=== PATIENT | female | born 1975 | race Caucasian/White ===

== ENCOUNTER 2016-10-27 18:59 | Emergency (ER) | payer SELFPAY ==
[2016-10-27 19:13] VITALS: BP 118/75
[2016-10-27] MEDS ORDERED: Sodium Chloride 0.9% 1,000 ML IV SCH (19:30)
[2016-10-27] MEDS ORDERED: Sodium Chloride 0.9% 10 ML Syringe FLUSH ONE (20:16)
[2016-10-27] MEDS ORDERED: Diatrizoate Meglumine/Diatrizoate Sodium 37% 120 ML Bottle PO ONE (20:16)
[2016-10-27] MEDS ORDERED: Iopamidol 612 MG/ML 100 ML Bottle IVPUSH ONE (20:16)
--- NOTE | 2016-10-27 20:16 | EDM.PDOC ---
ED HPI GENERAL MEDICAL PROBLEM - General Chief Complaint: Skin Complaint Stated Complaint: POSS CYST Time Seen by Provider: 10/27/16 19:18 Source of Information: Reports: Patient, RN Notes Reviewed, Other (Friend) History Limitations: Reports: No Limitations - History of Present Illness INITIAL COMMENTS - FREE TEXT/NARRATIVE: The patient states that she developed a painful lump to her right buttock about 2 weeks ago. A friend started to apply a salve about one week ago, and the wound began draining a yellowish purulent material around Thursday or Thursday, 10/21/2016 or 10/22/2016. Since then, the friend has been applying Neosporin ointment and covering the wound with a large Band-Aid. No recent fever. No prior similar symptoms. The patient is currently being court monitored for drug use. She has a history of methamphetamine abuse, including injection, although she states that she has never injected in her buttock. She does not recall any injury to the affected area. - Related Data Allergies Allergy/AdvReac Type Severity Reaction Status Date / Time codeine Allergy Nausea Verified 10/27/16 19:13 Home Meds: Home Meds . [No Known Home Meds] 10/27/16 [History] Past Medical History Psychiatric History: Reports: Addiction (Methamphetamine) - Past Surgical History HEENT Surgical History: Reports: Oral Surgery ([place] teeth extraction) GI Surgical History: Reports: Cholecystectomy Female Surgical History: Reports: Section (x 3) Social & Family History - Tobacco Use Smoking Status *Q: Current Every Day Smoker Years of Tobacco use: 27 Packs/Tins Daily: 1 - Caffeine Use Caffeine Use: Reports: None - Alcohol Use Alcohol Use History: No - Recreational Drug Use Recreational Drug Use: Yes Drug Use in Last 12 Months: Yes Recreational Drug Type: Reports: Methamphetamine Recreational Drug Last Use: around October 09, 2016 - Living Situation & Occupation Living situation: Reports: (), Other (with friends) Occupation: Unemployed ED ROS GENERAL - Review of Systems Review Of Systems: See Below Constitutional: Reports: No Symptoms HEENT: Reports: No Symptoms Respiratory: Reports: No Symptoms Cardiovascular: Reports: No Symptoms Endocrine: Reports: No Symptoms GI/Abdominal: Reports: No Symptoms : Reports: No Symptoms Musculoskeletal: Reports: No Symptoms Skin: Reports: No Symptoms Neurological: Reports: No Symptoms Psychiatric: Reports: No Symptoms Hematologic/Lymphatic: Reports: No Symptoms Immunologic: Reports: No Symptoms ED EXAM, SKIN/RASH Exam: See Below Exam Limited By: Other (The patient allowed me to look at the lesion, but did not allow me to palpate the area adequately - she moved away as soon as I began to palpate the area) General Appearance: Alert, WD/WN, No Apparent Distress Skin: Warm, Dry, Normal Color Location, Skin: Other (Medial right buttock: Approximately 2.5 cm diameter area of open wound with stringy yellow material emanating, consistent with an open abscess. Mild surrounding erythema and swelling. Unable to determine if the area is indurated or fluctuant, due to lack of cooperation by the patient.) Course - Vital Signs Last Recorded V/S: Last Vital Signs Temp 36.7 C 10/27/16 19:10 Pulse 98 10/27/16 19:10 Resp 16 10/27/16 19:10 BP 118/75 10/27/16 19:10 Pulse Ox 100 10/27/16 19:10 - Orders/Labs/Meds Orders: Active Orders 24 hr Category Date Time Status Pelvis w Cont [CT] Stat Exams 10/27/16 19:29 Taken Sodium Chloride 0.9% [Normal Saline] 1,000 ml Med 10/27/16 19:30 Active IV ASDIRECTED Medication Orders Sodium Chloride (Normal Saline) 1,000 mls @ 150 mls/hr IV ASDIRECTED [place] Last Admin: 10/27/16 19:42 Dose: 150 mls/hr Labs: Laboratory Tests 10/27/16 10/27/16 Range/Units 19:35 19:35 WBC 9.10 (3.98-10.04) K/mm3 RBC 4.61 (3.98-5.22) M/mm3 Hgb 14.2 (11.2-15.7) gm/L Hct 42.4 (34.1-44.9) % MCV 92.0 (79.4-94.8) fl MCH 30.8 (25.6-32.2) pg MCHC 33.5 (32.2-35.5) g/dl RDW Std Deviation 45.1 (36.4-46.3) fL Plt Count 338 (182-369) K/mm3 MPV 10.1 (9.4-12.3) fl Neutrophils % (Manual) 69 H (40-60) % Band Neutrophils % 0 (0-10) % Lymphocytes % (Manual) 27 (20-40) % Atypical Lymphs % 0 % Monocytes % (Manual) 1 L (2-10) % Eosinophils % (Manual) 3 (0.7-5.8) % Basophils % (Manual) 0 L (0.1-1.2) Platelet Estimate Adequate Plt Morphology Comment Normal RBC Morph Comment Normal Sodium 141 (136-145) mEq/L Potassium 3.8 (3.5-5.1) mEq/L Chloride 106 (98-107) mEq/L Carbon Dioxide 29 (21-32) mEq/L Anion Gap 9.8 (5-15) BUN 17 (7-18) mg/dL Creatinine 1.0 (0.55-1.02) mg/dL Est Cr Clr Drug Dosing TNP Estimated GFR (MDRD) > 60 (>60) mL/min BUN/Creatinine Ratio 17.0 (14-18) Glucose 69 L (74-106) mg/dL Calcium 9.5 (8.5-10.1) mg/dL Total Bilirubin 0.2 (0.2-1.0) mg/dL AST 11 L (15-37) U/L ALT 18 (14-59) U/L Alkaline Phosphatase 114 (46-116) U/L Total Protein 7.9 (6.4-8.2) g/dl Albumin 3.7 (3.4-5.0) g/dl Globulin 4.2 gm/dL Albumin/Globulin Ratio 0.9 L (1-2) Meds: Medications Generic Name Dose Route Start Last Admin Trade Name Freq PRN Reason Stop Dose Admin Sodium Chloride 1,000 mls @ 150 mls/hr 10/27/16 19:30 10/27/16 19:42 Normal Saline IV 150 mls/hr ASDIRECTED [place] Administration Discontinued Medications Generic Name Dose Route Start Last Admin Trade Name Freq PRN Reason Stop Dose Admin Diatrizoate Meglum/Diatrizoate Sod 120 ml 10/27/16 20:16 Gastrografin 37% PO 10/27/16 20:17 ONETIME ONE Iopamidol 100 ml 10/27/16 20:16 10/27/16 20:27 Isovue-300 (61%) IVPUSH 10/27/16 20:17 100 ml ONETIME ONE Administration Sodium Chloride 10 ml 10/27/16 20:16 10/27/16 20:27 Saline Flush FLUSH 10/27/16 20:17 10 ml ONETIME ONE Administration - Re-Assessments/Exams Free Text/Narrative Re-Assessment/Exam: 10/27/16 20:20 Notified by the scheme technician that the patient refused the rectal contrast. The probe was inserted into the rectum, the balloon inflated, but before any rectal contrast was given, the patient pushed it out, then instructed the scheme technician to not touch her. The scheme technician states that he inform the patient of the need for the rectal contrast, that the patient states that she is aware of it, but still refuses rectal contrast. 10/27/16 21:06 Notified by the patient's nurse that the patient wants to leave without waiting for the CT results. An AMA form has been filled out. Departure - Departure Time of Disposition: 21:06 Disposition: Against Medical Advice 07 Condition: Fair Clinical Impression: Perianal abscess - Discharge Information Referrals: PCP,None [Primary Care Provider] - Dunia Russo MD [Physician] - Forms: ED Department Discharge Additional Instructions: You were seen in the emergency room for an infection on your right buttock. Workup in the ER included blood work and a CT scan of your pelvis. Unfortunately, you have elected to leave before the results of the CT scan are available. We recommend you follow-up with the surgeon Dr. Dunia Russo at the next available appointment. If any other problems, please do not hesitate to return to the ER. - My Orders Last 24 Hours: My Active Orders 10/27/16 19:29 Pelvis w Cont [CT] Stat 10/27/16 19:30 Sodium Chloride 0.9% [Normal Saline] 1,000 ml IV ASDIRECTED - Assessment/Plan Last 24 Hours: My Active Orders 10/27/16 19:29 Pelvis w Cont [CT] Stat 10/27/16 19:30 Sodium Chloride 0.9% [Normal Saline] 1,000 ml IV ASDIRECTED
--- NOTE | 2016-10-28 12:19 | CT ---
CT pelvis Technique: Multiple axial sections through the pelvis were obtained. Intravenous contrast was utilized. Small amount of rectal contrast is seen with patient refusing additional contrast. This does limit the evaluation. Findings: Fair amount of stool seen within the rectosigmoid region. No inflammatory change is identified within the perirectal fat. No free fluid or inflammatory change is seen within the pelvis. Slight skin thickening and mild inflammatory change noted within the superficial buttock tissues on the right side presumably due to cellulitis. Bone window settings were reviewed which show no discrete osseous abnormality. Impression: 1. Slightly limited exam as patient refused adequate rectal contrast. 2. Fair amount of stool within the rectosigmoid region. 3. No definite inflammatory change or fluid collections are seen within the perirectal fat region. 4. Superficial skin thickening and inflammatory change is seen within the right buttock presumably due to localized cellulitis. Note: If further evaluation is needed for perirectal fistula, MRI is more sensitive for perirectal disease than is CT exam. Diagnostic code #3 MTDD
== END 2016-10-27 21:04 | disposition left against medical advice (07) ==
LOC: JD.ED 18:59
DX: K61.0 Anal abscess (principal); F17.210 Nicotine dependence, cigarettes, uncomplicated; Z90.49 Acquired absence of other specified parts of digestive tract
CPT/HCPCS: 36415; 72193; 80053; 85025; 96360; 99284; J7040; J7050; Q9963; Q9967; 99283

== ENCOUNTER 2016-11-07 09:29 | Emergency (ER) | payer SELFPAY ==
[2016-11-07 09:38] VITALS: BP 108/71
[2016-11-07] MEDS ORDERED: Ketorolac 30 MG/ML SDV IVPUSH ONE (10:22)
[2016-11-07] MEDS ORDERED: Sodium Chloride 0.9% 1,000 ML IV ONE (10:22)
[2016-11-07] MEDS ORDERED: Ondansetron 4 MG/2 ML SDV IVPUSH ONE (10:22)
--- NOTE | 2016-11-07 10:23 | EDM.PDOC ---
ED HPI GENERAL MEDICAL PROBLEM - General Chief Complaint: Abdominal Pain Stated Complaint: ABDOMINAL PAIN Time Seen by Provider: 11/07/16 09:58 Source of Information: Reports: Patient History Limitations: Reports: No Limitations - History of Present Illness INITIAL COMMENTS - FREE TEXT/NARRATIVE: The patient is a 41-year-old female with a chief complaint of abdominal pain. The patient states the pain started last night. Pain is located in the right abdomen. It has been gradually worsening. It is now sharp and severe. Worse with movement. She feels nauseated. No vomiting. No fever. No diarrhea. Denies hematuria or dysuria. No prior history of similar pain. There is no clear provoking factor. The pain has been worsening and is currently severe. Of note, the patient was here for a buttock abscess recently and left AGAINST MEDICAL ADVICE but she states that this has actually improved significantly. She has had a prior cholecystectomy Right Abdominal Pain Score (Numeric/FACES): 10 - Related Data Allergies Allergy/AdvReac Type Severity Reaction Status Date / Time codeine AdvReac Nausea Verified 11/07/16 09:38 Home Meds: Home Meds Cephalexin 250 mg PO QID #28 capsule 11/07/16 [Rx] Past Medical History Psychiatric History: Reports: Addiction Other Psychiatric History: patient currently has a drug patch on for [facility] - Past Surgical History HEENT Surgical History: Reports: Oral Surgery GI Surgical History: Reports: Cholecystectomy Female Surgical History: Reports: Section Social & Family History - Family History Family Medical History: Noncontributory - Tobacco Use Smoking Status *Q: Unknown Ever Smoked Years of Tobacco use: 27 Packs/Tins Daily: 1 - Caffeine Use Caffeine Use: Reports: None - Recreational Drug Use Recreational Drug Use: Yes Drug Use in Last 12 Months: Yes Recreational Drug Type: Reports: Methamphetamine Recreational Drug Last Use: around October 09, 2016 - Living Situation & Occupation Living situation: Reports: (), Other (with friends) Occupation: Unemployed ED ROS GENERAL - Review of Systems Review Of Systems: See Below Constitutional: Denies: Fever HEENT: Reports: No Symptoms Respiratory: Reports: Cough Cardiovascular: Denies: Chest Pain Endocrine: Reports: No Symptoms GI/Abdominal: Reports: Abdominal Pain : Denies: Dysuria, Hematuria Musculoskeletal: Reports: No Symptoms Skin: Reports: Wound ED EXAM, GI/ABD - Physical Exam Exam: See Below Exam Limited By: No Limitations General Appearance: Alert, No Apparent Distress, Anxious, Mild Distress Eyes: Bilateral: EOMI Ears: Normal External Exam Nose: Normal Inspection, Normal Mucosa, No Blood Throat/Mouth: Normal Inspection, Normal Voice, No Airway Compromise Head: Atraumatic, Normocephalic Neck: Normal Inspection, Supple, Non-Tender, Full Range of Motion Respiratory/Chest: No Respiratory Distress, Lungs Clear, Normal Breath Sounds, Chest Non-Tender Cardiovascular: Normal Peripheral Pulses, Regular Rate, Rhythm GI/Abdominal Exam: Soft, Other (No left-sided tenderness, moderate tenderness in the right lower quadrant and right upper quadrant with some guarding) Back Exam: CVA Tenderness (R) Neurological: Alert, Oriented, Normal Cognition Psychiatric: Normal Affect, Normal Mood Skin Exam: Warm, Dry, Intact, Normal Color, No Rash Course - Vital Signs Last Recorded V/S: Last Vital Signs Temp 36.9 C 11/07/16 09:34 Pulse 78 11/07/16 09:34 Resp 18 11/07/16 09:34 BP 108/71 11/07/16 09:34 Pulse Ox 98 11/07/16 09:34 - Orders/Labs/Meds Orders: Active Orders 24 hr Category Date Time Status Sodium Chloride 0.9% [Saline Flush] Med 11/07/16 11:58 Active 10 ml FLUSH ONETIME PRN Medication Orders Sodium Chloride (Saline Flush) 10 ml FLUSH ONETIME PRN PRN Reason: IV FLUSH Last Admin: 11/07/16 12:13 Dose: 10 ml Labs: Laboratory Tests 11/07/16 11/07/16 11/07/16 Range/Units 09:45 09:45 09:45 WBC 7.25 (3.98-10.04) K/mm3 RBC 4.38 (3.98-5.22) M/mm3 Hgb 13.8 (11.2-15.7) gm/L Hct 39.1 (34.1-44.9) % MCV 89.3 (79.4-94.8) fl MCH 31.5 (25.6-32.2) pg MCHC 35.3 (32.2-35.5) g/dl RDW Std Deviation 43.9 (36.4-46.3) fL Plt Count 335 (182-369) K/mm3 MPV 10.4 (9.4-12.3) fl Neut % (Auto) 60.6 (34.0-71.1) % Lymph % (Auto) 30.1 (19.3-51.7) % [place] % (Auto) 7.9 (4.7-12.5) % Eos % (Auto) 1.1 (0.7-5.8) Baso % (Auto) 0.3 (0.1-1.2) % Neut # (Auto) 4.40 (1.56-6.13) K/mm3 Lymph # (Auto) 2.18 (1.18-3.74) K/mm3 [place] # (Auto) 0.57 H (0.24-0.36) K/mm3 Eos # (Auto) 0.08 (0.04-0.36) K/mm3 Baso # (Auto) 0.02 (0.01-0.08) K/mm3 Sodium 140 (136-145) mEq/L Potassium 3.5 (3.5-5.1) mEq/L Chloride 107 (98-107) mEq/L Carbon Dioxide 26 (21-32) mEq/L Anion Gap 10.5 (5-15) BUN 22 H (7-18) mg/dL Creatinine 1.0 (0.55-1.02) mg/dL Est Cr Clr Drug Dosing TNP Estimated GFR (MDRD) > 60 (>60) mL/min BUN/Creatinine Ratio 22.0 H (14-18) Glucose 85 (74-106) mg/dL Calcium 9.0 (8.5-10.1) mg/dL Total Bilirubin 0.5 (0.2-1.0) mg/dL AST 15 (15-37) U/L ALT 17 (14-59) U/L Alkaline Phosphatase 123 H (46-116) U/L Total Protein 7.9 (6.4-8.2) g/dl Albumin 3.8 (3.4-5.0) g/dl Globulin 4.1 gm/dL Albumin/Globulin Ratio 0.9 L (1-2) Lipase 136 (73-393) U/L Urine Color (Yellow) Urine Appearance (Clear) Urine pH (5.0-8.0) Ur Specific [place] (1.005-1.030) Urine Protein (Negative) Urine Glucose (UA) (Negative) Urine Ketones (Negative) Urine Occult Blood (Negative) Urine Nitrite (Negative) Urine Bilirubin (Negative) Urine Urobilinogen (0.2-1.0) Ur Leukocyte Esterase (Negative) Urine RBC (0-5) /hpf Urine WBC (0-5) /hpf Urine WBC Clumps (NOT SEEN) /hpf Ur Epithelial Cells (0-5) /hpf Urine Bacteria (FEW) /hpf Urine Mucus (FEW) /hpf Urine Yeast (NOT SEEN) Urine HCG, Qual Negative (NEGATIVE) 11/07/16 Range/Units 09:48 WBC (3.98-10.04) K/mm3 RBC (3.98-5.22) M/mm3 Hgb (11.2-15.7) gm/L Hct (34.1-44.9) % MCV (79.4-94.8) fl MCH (25.6-32.2) pg MCHC (32.2-35.5) g/dl RDW Std Deviation (36.4-46.3) fL Plt Count (182-369) K/mm3 MPV (9.4-12.3) fl Neut % (Auto) (34.0-71.1) % Lymph % (Auto) (19.3-51.7) % [place] % (Auto) (4.7-12.5) % Eos % (Auto) (0.7-5.8) Baso % (Auto) (0.1-1.2) % Neut # (Auto) (1.56-6.13) K/mm3 Lymph # (Auto) (1.18-3.74) K/mm3 [place] # (Auto) (0.24-0.36) K/mm3 Eos # (Auto) (0.04-0.36) K/mm3 Baso # (Auto) (0.01-0.08) K/mm3 Sodium (136-145) mEq/L Potassium (3.5-5.1) mEq/L Chloride (98-107) mEq/L Carbon Dioxide (21-32) mEq/L Anion Gap (5-15) BUN (7-18) mg/dL Creatinine (0.55-1.02) mg/dL Est Cr Clr Drug Dosing Estimated GFR (MDRD) (>60) mL/min BUN/Creatinine Ratio (14-18) Glucose (74-106) mg/dL Calcium (8.5-10.1) mg/dL Total Bilirubin (0.2-1.0) mg/dL AST (15-37) U/L ALT (14-59) U/L Alkaline Phosphatase (46-116) U/L Total Protein (6.4-8.2) g/dl Albumin (3.4-5.0) g/dl Globulin gm/dL Albumin/Globulin Ratio (1-2) Lipase (73-393) U/L Urine Color Yellow (Yellow) Urine Appearance Clear (Clear) Urine pH 5.5 (5.0-8.0) Ur Specific [place] > or = 1.030 (1.005-1.030) Urine Protein 1+ H (Negative) Urine Glucose (UA) Negative (Negative) Urine Ketones Negative (Negative) Urine Occult Blood Trace-intact H (Negative) Urine Nitrite Positive H (Negative) Urine Bilirubin 1+ H (Negative) Urine Urobilinogen 1.0 (0.2-1.0) Ur Leukocyte Esterase Negative (Negative) Urine RBC 5-10 H (0-5) /hpf Urine WBC 0-5 (0-5) /hpf Urine WBC Clumps Not seen (NOT SEEN) /hpf Ur Epithelial Cells 0-5 (0-5) /hpf Urine Bacteria Many H (FEW) /hpf Urine Mucus Many H (FEW) /hpf Urine Yeast Not seen (NOT SEEN) Urine HCG, Qual (NEGATIVE) Meds: Medications Generic Name Dose Route Start Last Admin Trade Name Freq PRN Reason Stop Dose Admin Sodium Chloride 10 ml 11/07/16 11:58 11/07/16 12:13 Saline Flush FLUSH 10 ml ONETIME PRN Administration IV FLUSH Discontinued Medications Generic Name Dose Route Start Last Admin Trade Name Freq PRN Reason Stop Dose Admin Ceftriaxone Sodium 1 gm 11/07/16 12:15 Rocephin IVPUSH Q24H [place] Diatrizoate Meglum/Diatrizoate Sod 90 ml 11/07/16 11:58 11/07/16 12:13 Gastrografin 37% PO 11/07/16 11:59 90 ml ONETIME ONE Administration Sodium Chloride 1,000 mls @ 1,000 mls/hr 11/07/16 10:22 11/07/16 10:36 Normal Saline IV 11/07/16 11:21 1,000 mls/hr ONETIME ONE Administration Ceftriaxone Sodium 1,000 mg/ 50 mls @ 200 mls/hr 11/07/16 11:27 Sodium Chloride IV 11/07/16 11:41 ONETIME ONE Ceftriaxone Sodium 1 gm/ 100 mls @ 200 mls/hr 11/07/16 12:12 11/07/16 12:27 Sodium Chloride IV 11/07/16 12:41 200 mls/hr ONETIME STA Administration Iopamidol 110 ml 11/07/16 11:58 11/07/16 12:13 Isovue-300 (61%) IVPUSH 11/07/16 11:59 110 ml ONETIME ONE Administration Ketorolac Tromethamine 30 mg 11/07/16 10:22 11/07/16 10:36 Toradol IVPUSH 11/07/16 10:23 30 mg ONETIME ONE Administration Ondansetron HCl 4 mg 11/07/16 10:22 11/07/16 10:36 Zofran IVPUSH 11/07/16 10:23 4 mg ONETIME ONE Administration - Re-Assessments/Exams Free Text/Narrative Re-Assessment/Exam: 11/07/16 13:11 Labs significant for normal white count, LFTs and electrolytes unremarkable. Urine is concerning for infection, given dose of ceftriaxone here and will treat with cephalexin. CT scan is negative for appendicitis or other acute abnormality. Patient had a large bowel movement while in the emergency department and states that her pain resolved after this. She is now completely nontender and would like to go home. Discussed return precautions. Departure - Departure Time of Disposition: 13:07 Disposition: Home, Self-Care 01 Clinical Impression: Urinary tract infection Qualifiers: Urinary tract infection type: acute cystitis Hematuria presence: without hematuria Qualified Code(s): N30.00 - Acute cystitis without hematuria Abdominal pain Qualifiers: Abdominal location: right upper quadrant Qualified Code(s): R10.11 - Right upper quadrant pain - Discharge Information Prescriptions: Cephalexin 250 mg PO QID #28 capsule Referrals: PCP,None [Primary Care Provider] - Forms: ED Department Discharge Additional Instructions: 1. You were given toradol, zofran, and ceftriaxone in the ED (no narcotics or benzodiazepines). 2. Take antibiotic as prescribed. Take ibuprofen and/or tylenol as needed for pain. 3. Follow up with your primary doctor next week as needed. 4. Return to the ED if you have severe pain, vomiting, fever, or other concerning symptoms. - My Orders Last 24 Hours: My Active Orders 11/07/16 11:58 Sodium Chloride 0.9% [Saline Flush] 10 ml FLUSH ONETIME PRN - Assessment/Plan Last 24 Hours: My Active Orders 11/07/16 11:58 Sodium Chloride 0.9% [Saline Flush] 10 ml FLUSH ONETIME PRN
[2016-11-07] MEDS ORDERED: cefTRIAXone 1,000 MG in Sodium Chloride 0.9% 50 ML IV ONE (11:27)
[2016-11-07] MEDS ORDERED: Iopamidol 612 MG/ML 150 ML Bottle IVPUSH ONE (11:58)
[2016-11-07] MEDS ORDERED: Diatrizoate Meglumine/Diatrizoate Sodium 37% 120 ML Bottle PO ONE (11:58)
[2016-11-07] MEDS ORDERED: Sodium Chloride 0.9% 10 ML Syringe FLUSH PRN (11:58)
[2016-11-07] MEDS ORDERED: cefTRIAXone 1 GM in Sodium Chloride 0.9% 100 ML IV STA (12:12)
[2016-11-07] MEDS ORDERED: cefTRIAXone 2 GM Vial IVPUSH SCH (12:15)
--- NOTE | 2016-11-07 12:40 | CT ---
CT abdomen and pelvis Technique: Multiple axial sections were obtained from slightly below the top the liver inferiorly through the pubic symphysis. Intravenous and oral contrast was utilized. Delayed images were obtained through the bladder. Comparison: Previous CT pelvis exam of 10/27/16. Findings: Small portion of the visualized lung bases shows nothing acute. Visualized portions of the liver appear within normal limits. Spleen appears within normal limits. Adrenal glands show no nodule. Left kidney shows some cortical thinning compatible with scarring within the mid and upper pole. Left renal pelvis is slightly prominent believed to be incidental. Kidneys show no discrete parenchymal abnormality. Pancreas is within normal limits. Surgical clips are seen from prior cholecystectomy. Aorta shows no aneurysmal dilatation. No retroperitoneal adenopathy or mesenteric abnormalities are seen. No pelvic mass or adenopathy is seen. Appendix felt to be seen and appears to be normal. No free fluid is seen. No inflammatory change is seen. Bone window settings were reviewed which appears within normal limits for the patient's age. Delayed images shows contrast within the bladder. Impression: 1. Areas of cortical thinning within the left kidney compatible with scarring. Left renal pelvis is slightly prominent which is likely incidental. 2. Other normal findings as described above. No findings of appendicitis is seen. Diagnostic code #2
== END 2016-11-07 13:16 | disposition home or self-care (01) ==
LOC: JD.ED 09:29
DX: N30.00 Acute cystitis without hematuria (principal); R10.11 Right upper quadrant pain; Z90.49 Acquired absence of other specified parts of digestive tract; Z98.890 Other specified postprocedural states; Z88.5 Allergy status to narcotic agent
CPT/HCPCS: 36415; 74177; 80053; 81001; 81025; 83690; 85025; 96361; 96365; 96375; 99284; J0696; J1885; J2405; J7030; J7040; J7050; Q9963; Q9967

== ENCOUNTER 2022-10-01 07:34 | Emergency (ER) | payer SELFPAY | END 2022-10-01 07:50 | disposition left against medical advice (07) | LOC: JD.ED 07:34 | DX: Z53.21 Procedure and treatment not carried out due to patient leaving prior to being seen by health care provider (principal) ==